=== PATIENT | female | born 2000 | race Caucasian/White ===

== ENCOUNTER 2023-10-31 06:53 | Emergency (ER) | payer MEDICAID ==
[~2023-10-31] VITALS: Ht 149.9 cm; Wt 52.0 kg
[2023-10-31 06:53] VITALS: TEMP 98.4
[2023-10-31 07:20] VITALS: BP 112/46; PULSE 63; RESP 18; O2SAT 98
[2023-10-31] MEDS ORDERED: PRED20TA2 PO (10:03)
[2023-10-31] MEDS ORDERED: NABU-72 PO (10:03)
== END 2023-10-31 10:05 | disposition home or self-care (01) ==
LOC: ER 06:53
DX: M77.51 Other enthesopathy of right foot and ankle (principal); M79.671 Pain in right foot; Z79.899 Other long term (current) drug therapy
CPT/HCPCS: 73610; 73630